=== PATIENT | female | born 1945 | race Caucasian/White ===

== ENCOUNTER 2017-01-15 22:17 | Emergency (ER) | payer OTHER ==
[~2017-01-15] VITALS: Ht 157.5 cm; Wt 66.2 kg
[2017-01-15 22:44] LABS: HEMATOCRIT 40.6 % (36.0-46.0); MCH 32.2 PG (29.0-34.0); MCHC 33.5 G/DL (30.0-36.0); MEAN PLAT.VOLUME 10.7 uM^3 (9.5-12.4); PLATELET COUNT 234 K/uL (156-360); RBC DIS.WIDTH-CV 13.4 % (11.8-14.6); RBC DIS.WIDTH-SD 47.5 % (39-53); RED BLOOD COUNT 4.23 M/uL (3.80-5.20); WHITE BLOOD COUNT 9.6 K/uL (4.1-10.2)
[2017-01-15 22:52] LABS: CHLORIDE 106 mEq/L (99-109); POTASSIUM 4.1 mEq/L (3.7-5.4); SODIUM 139 mEq/L (136-147)
[2017-01-15 22:55] LABS: GLUCOSE 100 mg/dL (70-99)
[2017-01-15 22:56] LABS: ANION GAP 12 MEQ/L (2-14)
[2017-01-15 22:57] LABS: TOTAL BILIRUBIN 0.4 mg/dL (0.0-1.0)
[2017-01-15 22:58] LABS: ALKALINE PHOSPHATASE 106 IU/L (3-129); GFR ESTIMATE (CALCULATED) 52 mL/min/
[2017-01-15 22:59] LABS: UREA NITROGEN (BUN) 18 mg/dL (9-23)
[2017-01-16 00:27] LABS: ADD MIUA? YES; BILIRUBIN NEGATIVE; BLOOD NEGATIVE; COLOR YELLOW ((YELLOW)); GLUCOSE (STRIP) NEGATIVE; KETONES 5; LEUKOCYTES TRACE; NITRITE NEGATIVE; PROTEIN (STRIP) NEGATIVE; SPECIFIC GRAVITY 1.012 (1.000-1.030); UROBILINOGEN 0.2 MG/DL (0.2-1.0)
[2017-01-16 00:37] LABS: BACTERIA NONE SEEN /HPF; EPITHELIAL CELLS RARE /HPF; MUCUS TRACE /LPF; RED BLOOD CELLS 0-5 /HPF (0-5); UCUL ADDED? NO
[2017-01-16] MEDS ORDERED: NORCO 5/3251 TABLET PO (02:11)
[2017-01-16] MEDS ORDERED: MOTRIN600 MG PO (02:11)
[2017-01-16] MEDS ORDERED: MIRALAX255 GM PO (02:12)
[2017-01-16 02:39] VITALS: BP 129/66
== END 2017-01-16 02:49 | disposition home or self-care (01) ==
LOC: EME 22:17
DX: K59.00 Constipation, unspecified (principal); N83.201 Unspecified ovarian cyst, right side; I10 Essential (primary) hypertension; E78.5 Hyperlipidemia, unspecified
CPT/HCPCS: 74177; 80053; 81003; 83605; 85027; 99281; 99285; J1885; J2405; J3010; J7030

== ENCOUNTER 2018-02-18 16:23 | Emergency (ER) | payer OTHER, BC ==
[~2018-02-18] VITALS: Ht 154.9 cm; Wt 77.8 kg
[~2018-02-18 16:23] MED LIST: COZAAR100 MG PO; CYMBALTA30 MG PO; CYMBALTA60 MG PO; FLONASE16 G1 BOTH NARES; MELOXICAM15 MG PO; MIRALAX255 GM PO; MOTRIN600 MG PO; NORCO 5/3251 TABLET PO; PRAVACHOL20 MG PO; PRAVASTATIN SOD80 MG PO; PREVACID30 MG PO
[2018-02-18 17:06] LABS: HEMATOCRIT 40.2 % (36.0-46.0); HEMOGLOBIN 13.7 G/DL (11.9-15.5); MCH 32.2 PG (29.0-34.0); MCHC 34.1 G/DL (30.0-36.0); MCV 94.4 FL (83-99); PLATELET COUNT 281 K/uL (156-360); RBC DIS.WIDTH-CV 12.9 % (11.8-14.6); RBC DIS.WIDTH-SD 44.5 % (39-53); RED BLOOD COUNT 4.26 M/uL (3.80-5.20); WHITE BLOOD COUNT 7.6 K/uL (4.1-10.2)
[2018-02-18 17:15] LABS: CHLORIDE 106 mEq/L (99-109); POTASSIUM 4.3 mEq/L (3.7-5.4); SODIUM 139 mEq/L (136-147)
[2018-02-18 17:16] LABS: GLUCOSE 122 mg/dL (70-99)
[2018-02-18 17:20] LABS: CREATININE 1.1 mg/dL (0.6-1.3); GFR ESTIMATE (CALCULATED) 51 mL/min/
[2018-02-18 17:21] LABS: UREA NITROGEN (BUN) 15 mg/dL (9-23)
[2018-02-18 19:55] LABS: TROP-I INTERPRETATION NEGATIVE; TROPONIN-I < 0.01 ng/mL (0.0-0.30)
[2018-02-18] MEDS ORDERED: FLONASE16 G1 BOTH NARES (21:41)
[2018-02-18] MEDS ORDERED: AMOXICILLIN500 MG PO (21:41)
[2018-02-18 21:43] VITALS: BP 159/78
== END 2018-02-18 21:54 | disposition home or self-care (01) ==
LOC: EME 16:23 → EXP 16:23
DX: R42 Dizziness and giddiness (principal); J32.3 Chronic sphenoidal sinusitis; J02.9 Acute pharyngitis, unspecified; J44.9 Chronic obstructive pulmonary disease, unspecified; I10 Essential (primary) hypertension; E78.5 Hyperlipidemia, unspecified; Z87.891 Personal history of nicotine dependence
CPT/HCPCS: 70450; 71046; 80048; 84484; 85027; 93005